=== PATIENT | female | born 1985 | race Native Hawaiian/Other Pacific Islander ===

== ENCOUNTER 2018-12-24 21:23 | Emergency (ER) | payer OTHER ==
[~2018-12-24] VITALS: Ht 175.3 cm; Wt 92.1 kg
[~2018-12-24 21:23] MED LIST: ADIPEX-P37.5 M1 OR; HYDR25TA60 PO
[2018-12-24 23:48] VITALS: BP 14133/7; TEMP 98.7
== END 2018-12-24 23:45 | disposition home or self-care (01) ==
LOC: ED 21:23
DX: R25.2 Cramp and spasm (principal); M54.2 Cervicalgia
CPT/HCPCS: 96372; 99283; J1100

== ENCOUNTER → 2020-02-10 | Outpatient (CLI) | payer OTHER ==
[2020-02-10 20:35] LABS: POTASSIUM 4.6 mmol/L (3.6-5.2)
== END ==
LOC: LABW 10:35 → CT 10:35
PROVIDERS: Family Medicine
DX: R42 Dizziness and giddiness (principal); R53.83 Other fatigue; E55.9 Vitamin D deficiency, unspecified; E53.8 Deficiency of other specified B group vitamins; Z13.220 Encounter for screening for lipoid disorders; R68.82 Decreased libido
CPT/HCPCS: 80053; 80061; 82306; 82607; 82670; 83001; 84402; 84403; 84436; 84443; 84481; 86376

== ENCOUNTER 2021-02-28 08:12 | Outpatient (CLI) | payer OTHER ==
[2021-02-28 08:32] LABS: PLATELET COUNT 313 K/uL (152-353)
[2021-02-28 08:59] LABS: POTASSIUM 4.2 mmol/L (3.6-5.2)
== END 2021-02-28 22:08 | disposition home or self-care (01) ==
LOC: LABW 08:12
PROVIDERS: ATTEND Nurse Practitioner Family
DX: L20.9 Atopic dermatitis, unspecified (principal); E53.8 Deficiency of other specified B group vitamins; Z13.220 Encounter for screening for lipoid disorders
CPT/HCPCS: 36415; 80053; 80061; 82306; 82607; 84443; 85027; 85652; 86038; 86140; 86430

== ENCOUNTER 2021-12-06 16:38 | Outpatient (CLI) | payer OTHER | END 2021-12-06 21:30 | disposition home or self-care (01) | LOC: LAB 16:38 | PROVIDERS: ATTEND Internal Medicine | DX: R53.81 Other malaise (principal); R53.83 Other fatigue; R68.82 Decreased libido | CPT/HCPCS: 82670; 83001; 84403 ==